=== PATIENT | female | born 1965 | race Caucasian/White ===

== ENCOUNTER 2016-12-30 13:53 | Observation (INO) | payer OTHER ==
[2016-12-30] MEDS ORDERED: SODIUM CHLORIDE 0.9% (FLUSH) 10 ML SYG IV PRN ×2 (14:07→20:14)
[2016-12-30] MEDS ORDERED: ONDANSETRON INJ 4 MG/2 ML VIAL IV ONE ×2 (14:07→16:38)
[2016-12-30] MEDS ORDERED: NITROGLYCERIN 0.4 MG 25 EA TAB SL ONE ×3 (14:07→15:21)
[2016-12-30] MEDS ORDERED: ASPIRIN TABLET 325 MG TAB PO ONE (14:07)
--- NOTE | 2016-12-30 15:08 | RAD ---
Procedure: AP View Chest Exam date: 12/30/2016 2:07 PM CDT Ordering Provider: Didi Perez Clinical Indication: chest pain Comparison: None Findings: Cardiomediastinal silhouette is within normal limits. The lungs are clear. No large pleural effusions or pneumothorax. Osseous structures are nonacute. No evidence of active tuberculosis. Impression: No acute cardiopulmonary process. Electronically signed by: Brenton Bain MD 12/30/2016 3:07 PM CDT
--- NOTE | 2016-12-30 16:32 | ED.PDOC ---
History of Present Illness - General Chief Complaint: Chest Pain/IN Stated Complaint: chest discomfort Time Seen by Provider: 12/30/16 14:05 Source: patient, RN notes reviewed, Vital Signs reviewed Exam Limitations: no limitations - History of Present Illness Initial Comments: Patient is a 51 y/o female who started having chest pain about 2 hours [employer]. The pain is substernal and radiates the the left upper chest and neck. It is pressure that is occasionally sharp. She denies any SOB, nausea or diaphoresis. She has a history of HTN and high cholesterol. Timing/Duration: 1-3 hours Severity: severe Improving Factors: nothing Worsening Factors: nothing Associated Symptoms: chest pain Allergies/Adverse Reactions: Allergies Acetaminophen [From [place]] Allergy (Unverified 05/23/13 00:40) Alprazolam [From Xanax] Allergy (Unverified 05/23/13 00:40) Hydrocodone [From [place]] Allergy (Unverified 05/23/13 00:40) Hydromorphone [From Dilaudid] Allergy (Unverified 05/23/13 00:38) Morphine Allergy (Unverified 05/23/13 00:38) Omeprazole [From Prilosec] Allergy (Unverified 05/23/13 00:40) Tramadol [From Ultram] Allergy (Unverified 05/23/13 00:40) Home Medications: Ambulatory Orders Acetaminophen W/ Codeine [Acetaminophen/Codeine #3 300-30 mg] 1 tab PO TID PRN 12/30/16 Aspirin [Aspirin Adult Low Dose] 81 mg PO DAILY 12/30/16 Bupropion HCl [Bupropion HCl Sr] 150 mg PO DAILY 12/30/16 Clonazepam 0.5 mg PO Q8H PRN 12/30/16 Docusate Sodium [Stool Softener] 100 mg PO BID 12/30/16 Estradiol 2 mg PO DAILY 12/30/16 Gabapentin 300 mg PO DAILY 12/30/16 Gabapentin 600 mg PO BEDTIME 12/30/16 Metoprolol Tartrate 50 mg PO BID 12/30/16 Multiple Vitamins W/ Minerals [Multivitamin Adults 50+] 1 tab PO DAILY 12/30/16 Naproxen [Naprosyn] 500 mg PO BID 12/30/16 Niacin [Niacin ER] 500 mg PO BEDTIME 12/30/16 Pantoprazole Sodium 40 mg PO BID 12/30/16 Simvastatin 40 mg PO BEDTIME 12/30/16 Venlafaxine HCl [Venlafaxine HCl ER] 150 mg PO BID 12/30/16 Vitamin E [E-400] 800 unit PO BEDTIME 12/30/16 Review of Systems - Review of Systems Constitutional: Denies: diaphoresis EENTM: States: no symptoms reported Respiratory: States: no symptoms reported Cardiology: States: chest pain Gastrointestinal/Abdominal: States: no symptoms reported Genitourinary: States: no symptoms reported Musculoskeletal: States: no symptoms reported Skin: States: no symptoms reported Neurological: States: no symptoms reported Endocrine: States: no symptoms reported Hematologic/Lymphatic: States: no symptoms reported All other Systems: Reviewed and Negative Past Medical History (General) - Patient Medical History Hx Hypertension: Yes Hx Gastroesophageal Reflux: Yes - Vaccination History Hx Tetanus, Diphtheria Vaccination: No Hx Influenza Vaccination: No Hx Pneumococcal Vaccination: No - Social History Hx Tobacco Use: No Hx Chewing Tobacco Use: No Hx Alcohol Use: Yes - occasionaly Hx Substance Use: No Hx Substance Use Treatment: No Hx Depression: Yes Hx Physical Abuse: No Hx Emotional Abuse: No Hx Suspected Abuse: No - Female History Patient : No Family Medical History - Family History Mother Living Status: Still Living Hx Family Diabetes: Yes Hx Family;Other: fibrocystic breast disease Physical Exam - Physical Exam General Appearance: Alert, Anxious, Obvious distress Ears, Nose, Throat: hearing grossly normal, normal ENT inspection Respiratory: lungs clear, normal breath sounds, no respiratory distress, no accessory muscle use Cardiovascular/Chest: regular rate, rhythm, no edema, no gallop, no murmur Gastrointestinal/Abdominal: normal bowel sounds, non tender, soft, no organomegaly Extremity: normal range of motion, non-tender, normal inspection, no pedal edema , no calf tenderness Neurologic: alert, normal mood/affect, oriented x 3 Skin Exam: normal color, warm/dry Progress - Progress Progress: 12/30/16 16:33 Patient reported relief of her symptoms after ASA and 3 Nitro. However, pain returned after an hour. Nitropaste 0.5 inch was placed with some relief. An additional 0.5 inch was added which provided complete relief. 12/30/16 18:20 - Results/Orders Results/Orders: 12/30/16 12/30/16 12/30/16 13:57 14:50 15:21 Temperature 98.3 F Pulse Rate [ 113 H 102 H 100 H Apical] Respiratory 20 18 18 Rate Blood Pressure 156/82 136/84 117/76 [Right Arm] O2 Sat by Pulse 100 98 99 Oximetry 12/30/16 12/30/16 17:00 17:49 Temperature Pulse Rate [ 103 H 96 H Apical] Respiratory 20 18 Rate Blood Pressure 114/55 118/63 [Right Arm] O2 Sat by Pulse 98 97 Oximetry 12/30/16 14:07 IV Care:Saline Lock per Protoc QSHIFT Telemetry .ONCE Sodium Chloride 0.9% (Flush) [Saline Flush Syringe] 10 ml IV PRN PRN EKG Stat Pulse Ox Stat 12/30/16 14:08 EKG Assessment ONCE Pulse Oximetry Assessment DAILY Laboratory Results WBC 6.0 K/mm3 (4.8-10.8) 12/30/16 14:25 RBC 4.61 M/mm3 (4.20-5.40) 12/30/16 14:25 Hgb 13.4 gm/dL (12.0-16.0) 12/30/16 14:25 Hct 39.9 % (36.0-47.0) 12/30/16 14:25 MCV 86.6 fl (81.0-99.0) 12/30/16 14:25 MCH 29.1 pg (27.0-31.0) 12/30/16 14:25 MCHC 33.6 g/dL (33.0-37.0) 12/30/16 14:25 RDW 14.1 % (11.5-14.5) 12/30/16 14:25 Plt Count 186 K/mm3 (130-400) 12/30/16 14:25 MPV 8.4 fl (7.40-10.4) 12/30/16 14:25 Absolute Neuts (auto) 3.70 K/uL (1.8-6.8) 12/30/16 14:25 Absolute Lymphs (auto) 1.80 K/uL (1.0-3.4) 12/30/16 14:25 Absolute Monos (auto) 0.50 K/uL (0.2-0.8) 12/30/16 14:25 Absolute Eos (auto) 0.00 K/uL (0.0-0.4) 12/30/16 14:25 Absolute Basos (auto) 0.00 K/uL (0.0-0.1) 12/30/16 14:25 Neutrophils % 61.1 % (42.0-78.0) 12/30/16 14:25 Lymphocytes % 30.6 % (20.0-50.0) 12/30/16 14:25 Monocytes % 8.2 % (2.0-9.0) 12/30/16 14:25 Eosinophils % 0.0 % (1.0-5.0) L 12/30/16 14:25 Basophils % 0.1 % (0.0-2.0) 12/30/16 14:25 PT 11.3 SECONDS (9.4-12.5) 12/30/16 14:25 INR 1.000 12/30/16 14:25 PTT (SP) 32.3 SECONDS (25.1-36.5) 12/30/16 14:25 D-Dimer, Quantitative < 200 ng/mL (0-230) 12/30/16 14:25 Sodium 138 mmol/L (135-145) 12/30/16 14:25 Potassium 4.0 mmol/L (3.6-5.0) 12/30/16 14:25 Chloride 102 mmol/L (101-111) 12/30/16 14:25 Carbon Dioxide 28 mmol/L (21-31) 12/30/16 14:25 Anion Gap 12.0 (12-18) 12/30/16 14:25 BUN 16 mg/dL (7-18) 12/30/16 14:25 Creatinine 0.80 mg/dL (0.6-1.3) 12/30/16 14:25 BUN/Creatinine Ratio 20.0 (10-20) 12/30/16 14:25 Random Glucose 114 mg/dL (70-105) H 12/30/16 14:25 Serum Osmolality 277.7 mOsm/L (275-295) 12/30/16 14:25 Calcium 9.0 mg/dL (8.4-10.2) 12/30/16 14:25 Magnesium 1.8 mg/dL (1.8-2.5) 12/30/16 14:25 Total Bilirubin 0.3 mg/dL (0.2-1.0) 12/30/16 14:25 Direct Bilirubin < 0.1 mg/dL (0-0.2) 12/30/16 14:25 Indirect Bilirubin 0.2 mg/dL (0.2-0.8) 12/30/16 14:25 AST 23 IU/L (10-42) 12/30/16 14:25 ALT 26 IU/L (10-60) 12/30/16 14:25 Alkaline Phosphatase 66 IU/L (42-121) 12/30/16 14:25 Creatine Kinase 49 IU/L (26-140) 12/30/16 17:25 CK-MB (CK-2) 2.0 ng/mL (0.0-4.4) 12/30/16 17:25 CK-MB (CK-2) % Not Reportable 12/30/16 17:25 Troponin I < 0.02 ng/mL (0.01-0.05) 12/30/16 17:25 B-Natriuretic Peptide 53.8 pg/ml (0-100) 12/30/16 14:25 Serum Total Protein 7.3 gm/dL (6.4-8.2) 12/30/16 14:25 Albumin 4.0 g/dl (3.2-5.5) 12/30/16 14:25 - EKG/XRAY/CT EKG: Sinus, Tachy - 117 bpm Comments: NML axis; T-wave inv. III,aVR,V1,V2; No comp. avail.-Abn EKG XRAY: chest Xray Comments: No acute process Departure - Departure Clinical Impression: Tachycardia Chest pain Qualifiers: Chest pain type: unspecified Qualifier Code: (R07.9) Chest pain, unspecified Time of Disposition: 18:56 Disposition: Admit Patient Referrals: TOM WALKER [Primary Care Provider] - 1-2 Weeks Home Medications: Ambulatory Orders Acetaminophen W/ Codeine [Acetaminophen/Codeine #3 300-30 mg] 1 tab PO TID PRN 12/30/16 Aspirin [Aspirin Adult Low Dose] 81 mg PO DAILY 12/30/16 Bupropion HCl [Bupropion HCl Sr] 150 mg PO DAILY 12/30/16 Clonazepam 0.5 mg PO Q8H PRN 12/30/16 Docusate Sodium [Stool Softener] 100 mg PO BID 12/30/16 Estradiol 2 mg PO DAILY 12/30/16 Gabapentin 300 mg PO DAILY 12/30/16 Gabapentin 600 mg PO BEDTIME 12/30/16 Metoprolol Tartrate 50 mg PO BID 12/30/16 Multiple Vitamins W/ Minerals [Multivitamin Adults 50+] 1 tab PO DAILY 12/30/16 Naproxen [Naprosyn] 500 mg PO BID 12/30/16 Niacin [Niacin ER] 500 mg PO BEDTIME 12/30/16 Pantoprazole Sodium 40 mg PO BID 12/30/16 Simvastatin 40 mg PO BEDTIME 12/30/16 Venlafaxine HCl [Venlafaxine HCl ER] 150 mg PO BID 12/30/16 Vitamin E [E-400] 800 unit PO BEDTIME 12/30/16 Decision To Admit - Decistion To Admit Decision to Admit Reason: Medical Nature Decision to Admit Date: 12/30/16 Decision to Admit Time: 18:30
[2016-12-30] MEDS ORDERED: ONDANSETRON INJ 4 MG/2 ML VIAL ONE (16:36)
[2016-12-30] MEDS ORDERED: NITROGLYCERIN 2% 1 GM UD TOP ONE ×2 (16:37)
--- NOTE | 2016-12-30 19:44 | HP ---
SUPERVISING PHYSICIAN: Los Louie MD CHIEF COMPLAINT: Chest pain. HISTORY OF PRESENT ILLNESS: Ms. Cortes is a 51-year-old, female patient that presented to the Emergency Department after onset of chest pain two hours prior to arrival. She noted the pain was substernal and was radiating up the left upper chest and neck and described as sharp, dull ache. She denied any significant shortness of breath. She had some nausea and no diaphoresis. She has a significant history for hypertension and high cholesterol. In the Emergency Department, she was given 3 nitroglycerin and reported the pain was relieved. Initially the pain was described as 7/10 on the pain scale and the patient was pain free upon request for admission from the Emergency Department. Initial cardiac enzymes were completed times two with troponin being less than 0.02. White count within normal limits. Chemistries showed normal electrolytes, normal liver functions. BNP normal at 53.8. Chest x-ray prior to admission from the Emergency Department per radiology interpretation showed no acute cardiopulmonary processes. Initial EKG showed sinus tachycardia at 117 with slight T-wave inversion in V3, V1 and V2. There was no available comparison. Again, the patient was given 3 nitroglycerin which relieved the pain in the Emergency Department. However, after a short period of time, approximately one hour, the pain returned and she was started on nitro paste 0.5 inch with complete relief. The patient is now going to be placed in observation for continuation of workup and evaluation to rule out acute cardiac event. The patient was placed on observation in stable condition. PAST MEDICAL HISTORY: 1. Arthritis. 2. Hypertension. 3. History of tachycardia. 4. Depression and anxiety. 5. Neuropathy. 6. Hyperlipidemia. 7. Hypothyroidism. 8. Chronic back pain. PAST SURGICAL HISTORY: 1. Total hysterectomy. 2. Tonsillectomy. 3. Cholecystectomy. 4. Wrist surgery. HOME MEDICATIONS: 1. Tylenol No. 3, 3 times daily as needed for pain. 2. Vitamin E 800 units at bedtime. 3. Multivitamins with minerals 1 tablet daily. 4. Gabapentin 300 mg at bedtime. 5. Neurontin (gabapentin) 300 mg daily. 6. Naprosyn 500 mg twice daily. 7. Clonazepam 0.5 mg q.8h. p.r.n. for anxiety. 8. Niacin ER 500 mg at bedtime. 9. Stool softener - Docusate sodium 100 mg twice daily. 10. Pantoprazole 40 mg twice daily. 11. Metoprolol tartrate 50 mg twice daily. 12. Aspirin 81 mg daily. 13. Estradiol 2 mg daily. 14. Bupropion HCL 150 mg daily. 15. Venlafaxine 150 mg b.i.d. 16. Simvastatin 40 mg daily. ALLERGIES: ALPRAZOLAM, HYDROCODONE, HYDROMORPHONE, NORCO, MORPHINE, DILAUDID, TRAMADOL. FAMILY HISTORY: Significant for TIA in her father as well as cardiovascular disease, hypertension and diabetes in her mother's side of the family. 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 She lives in [place], [place]. She is currently . She has two children, one living at home. She denies ever smoking and only drinks alcohol on occasion. REVIEW OF SYSTEMS: CONSTITUTIONAL: Denies any fevers, chills, fatigue, or unintentional weight loss. HEENT: Denies nasal congestion, sore throat. RESPIRATORY: Denies shortness of breath, cough, chest congestion. CARDIOVASCULAR: As noted in history of present illness, chest pain. GASTROINTESTINAL: Denies nausea or vomiting. She does have some issues with chronic constipation. GENITOURINARY: Denies dysuria, increased frequency or other urinary symptoms. NEUROLOGIC: Denies syncopal episodes, dizziness, headaches. PHYSICAL EXAMINATION: VITAL SIGNS: Temperature 98.3. Pulse 113. Blood pressure 156/82. Respirations 20. O2 saturation 100% on room air. Admission weight 103.6 kg. GENERAL: The patient is alert, in no obvious acute distress on exam in the Emergency Department. HEENT: Tympanic membranes clear bilaterally. Oropharynx is pink, moist without any lesions. No oral lesions. NECK: No jugular venous distention noted. CHEST: Lungs clear to auscultation bilaterally without any notable rhonchi, wheezes, or rales. CARDIOVASCULAR: Regular rate and rhythm without any appreciable murmurs, gallops, or rubs. ABDOMEN: Obese, but soft, nontender. Positive bowel sounds. EXTREMITIES: There is no cyanosis, clubbing or edema. NEUROLOGIC: The patient is alert and oriented times three. LABORATORY: CBC within normal limits. Differential within normal limits. Coagulation studies show normal PT, PT-T. D-dimer less than 200. Chemistries show normal electrolytes, liver functions. Glucose 114. Initial cardiac enzymes showed less than 0.02. Repeat in 3 hours showed troponin less than 0.02 with CPK within normal limits. BNP 53. Urinalysis pending. RADIOLOGY: Chest x-ray shows no acute cardiopulmonary processes. 12 lead EKG initially shows sinus tachycardia at 117 with some T-wave inversion noted in III , V1 and V2. No comparison available. ASSESSMENT: 1. Chest pains, unknown etiology. Initial set of cardiac enzymes show no acute changes. 2. Tachycardia with history of tachycardia on beta blockers including metoprolol, possibly needing adjustment in levels to assist with better control of ventricular rate. 3. Hypertension. 4. History of depression and anxiety. 5. Gastroesophageal reflux disease. 6. Chronic pain syndrome, lower back. 7. Hypothyroidism, currently on replacement. PLAN: The patient will be placed in observation to rule out an acute cardiac event. She did have initial enzyme times two that showed negative troponin. We will plan to repeat this in 6 hours as well as an EKG. The patient was started on nitro paste and will be transitioned to a 0.4 mg nitroglycerin patch for better control. The patient could possibly benefit from a mcfp nitro, but will await consultation with cardiology. We will try to establish a cardiac followup possibly tomorrow with Dr. Hoang prior to discharge to further assist with the patient's treatment plan. Should the patient show any acute changes on telemetry or elevation of enzymes or EKG changes, certainly we will contact cardiology and discuss possible transfer for further acute treatment and evaluation. We will plan to restart all of the patient's home medications once verified and updated in the electronic medical record and start her on DVT prophylaxis per protocol. Anticipate length of stay of 1 to 2 days. Possible discharge tomorrow with close clinical followup needed at time of discharge. Once the patient is discharged, she will followup with Dr. Culp, her primary care provider, and further cardiac followup if unable to secure a cardiovascular consultation in the morning with Dr. Hoang. Until discharge, we will continue to monitor the patient closely and treat appropriately. Dr. Louie is the collaborating physician and available for consultation. #[id number] [facility]
[2016-12-30] MEDS ORDERED: NITROGLYCERIN 0.4 MG 25 EA TAB SL PRN (20:14)
[2016-12-30] MEDS ORDERED: MORPHINE SULFATE INJ 10 MG/ML VIAL IV PRN (20:14)
[2016-12-30] MEDS ORDERED: ACETAMINOPHEN 325 MG TAB PO PRN (20:14)
[2016-12-30] MEDS ORDERED: ACETAMINOPHEN W/COD #3 TAB (ER Disp) PO PRN (20:18)
[2016-12-30] MEDS ORDERED: IV SET AND CAP CHANGE INJ INJ SCH (20:30)
[2016-12-30] MEDS ORDERED: NITROGLYCERIN 0.4 MG/HR PATCH TOP SCH (20:30)
[2016-12-30] MEDS ORDERED: VENLAFAXINE XR 75 MG CAP ONE ×2 (20:55→21:50)
[2016-12-30] MEDS ORDERED: NIACIN ER 500 MG TAB ONE (20:56)
[2016-12-30] MEDS ORDERED: ESTRADIOL TAB 1 MG PO ONE (20:56)
[2016-12-30] MEDS ORDERED: SIMVASTATIN 20 MG TAB ONE (20:57)
[2016-12-30] MEDS ORDERED: ACETAMINOPHEN W/COD #3 TAB 1 EA TAB ONE (20:58)
[2016-12-30] MEDS ORDERED: METOPROLOL TARTRATE 50 MG TAB PO SCH (21:00)
[2016-12-30] MEDS ORDERED: NIACIN 500 MG PO SCH (21:00)
[2016-12-30] MEDS ORDERED: NON-FORMULARY MEDICATION 1 EA MIS (Simvastatin [Simvastatin] 40 MG) PO SCH (21:00)
[2016-12-30] MEDS ORDERED: GABAPENTIN 300 MG CAP PO SCH (21:00)
[2016-12-30] MEDS ORDERED: NON-FORMULARY MEDICATION 1 EA MIS (Venlafaxine Hcl [Venlafaxine Hcl Er] 150 MG) PO SCH (21:00)
[2016-12-30] MEDS ORDERED: VITAMIN E 800 UNIT PO SCH (21:00)
[2016-12-30] MEDS ORDERED: PANTOPRAZOLE SODIUM TAB 40 MG PO SCH (21:00)
[2016-12-30] MEDS: SODIUM CHLORIDE 0.9% (FLUSH) 10 ML SYG IV SCH (21:09)
[2016-12-30] MEDS: DOCUSATE SODIUM 100 MG CAP PO SCH (21:12)
[2016-12-30] MEDS: NAPROXEN 500 MG TAB PO SCH (21:12)
[2016-12-30] MEDS ORDERED: VENLAFAXINE XR 75 MG CAP PO ONE (21:56)
--- NOTE | 2016-12-31 00:27 | PCM.CORE ---
Physician DVT/VTE - Nurse DVT Assessment & Total Each Risk Factor Represents 1 Point: Age 41-60 Each Risk Factor is 1 Point: Obesity (BMI >25), Serious Lung disease (pnemonia < 1month, COPD, emphysema,etc) DVT Assessment Score: 3 - 3-4 High Risk Treatments: Early Ambulation *, Sequential Compression Device Pharmacological: Enoxaparin 40 mg SQ Daily
[2016-12-31] MEDS ORDERED: ESTRADIOL TAB 1 MG PO ONE (07:27)
[2016-12-31] MEDS ORDERED: NITROGLYCERIN 0.4 MG/HR PATCH TOP ONE (07:28)
[2016-12-31] MEDS ORDERED: ACETAMINOPHEN W/COD #3 TAB 1 EA TAB PO PRN (08:19)
[2016-12-31] MEDS ORDERED: SODIUM CHLORIDE 0.9% 10 ML VIAL IV PRN (08:23)
[2016-12-31] MEDS ORDERED: REMOVE OLD PATCH TOP SCH (09:00)
[2016-12-31] MEDS ORDERED: ESTRADIOL TAB 1 MG PO SCH ×2 (09:00→21:00)
[2016-12-31] MEDS ORDERED: METOPROLOL TARTRATE 50 MG TAB PO SCH (09:00)
[2016-12-31] MEDS ORDERED: ESTRADIOL 2 MG PO SCH (09:00)
[2016-12-31] MEDS ORDERED: ENOXAPARIN SODIUM 40 MG/0.4 ML SYG SUBCU SCH (09:00)
[2016-12-31] MEDS ORDERED: ASPIRIN TABLET 325 MG TAB PO SCH (09:00)
[2016-12-31] MEDS ORDERED: GABAPENTIN 300 MG CAP PO SCH (09:00)
[2016-12-31] MEDS ORDERED: ASPIRIN EC 81 MG TAB PO SCH ×2 (09:00→21:00)
[2016-12-31] MEDS: NAPROXEN 500 MG TAB PO SCH (09:06)
[2016-12-31] MEDS: DOCUSATE SODIUM 100 MG CAP PO SCH (09:07)
[2016-12-31] MEDS: SODIUM CHLORIDE 0.9% (FLUSH) 10 ML SYG IV SCH (09:07)
[2016-12-31 09:56] VITALS: BP 125/79; TEMP 98.5; O2SAT 96
[2016-12-31] MEDS ORDERED: LIDOCAINE VIS-MYLANTA 30 ML UD PO ONE (10:17)
[2016-12-31] MEDS ORDERED: PANTOPRAZOLE SODIUM TAB 40 MG PO SCH (16:30)
[2016-12-31] MEDS ORDERED: VITAMIN E 1,000 IU CAP PO SCH (21:00)
[2016-12-31] MEDS ORDERED: NITROGLYCERIN 0.4 MG/HR PATCH TOP SCH (21:00)
[2016-12-31] MEDS ORDERED: SIMVASTATIN 20 MG TAB PO SCH (21:00)
[2016-12-31] MEDS ORDERED: NIACIN ER 500 MG TAB PO SCH (21:00)
[2016-12-31] MEDS ORDERED: VENLAFAXINE XR 75 MG CAP PO SCH (21:00)
--- NOTE | 2017-01-01 09:43 | DS ---
SUPERVISING PHYSICIAN: Los Louie MD DISCHARGE DIAGNOSIS: 1. Chest pains, unknown etiology with three sets of cardiac enzymes showing troponin less than 0.02 and nonspecific T-wave changes on EKG with no acute changes from admission. 2. Tachycardia with history of tachycardia on beta blockers including metoprolol, stable during admission. 3. Hypertension, stable 4. Gastroesophageal reflux disease with a negative Helicobacter pylori, possibly contributing to some of her epigastric discomfort. 5. Chronic pain syndrome, lower back. 6. Hypothyroidism, currently on replacement therapy. 7. History of depression and anxiety. 8. Hyperlipidemia, currently on therapy with simvastatin. HISTORY OF PRESENT ILLNESS: Ms. Cortes is a 51-year-old, female patient that presented to the Emergency Department after sudden onset of chest pain two hours prior to arrival. She noted the chest pain was more substernal, epigastric and was radiating up into the chest wall, head and neck, sometimes with the pain being described as sharp, intermittent, dull and achy. She denied any significant shortness of breath. She had some mild nausea, but not ever any diaphoresis. She has a significant history for hypertension and high cholesterol, but is on current therapy. In the Emergency Department, she was given 3 nitroglycerin and reported the pain was relieved. Initially the pain was described as 7/10 on the pain scale and the patient was pain free and then once again, approximately an hour, the pain returned and she was started on nitro paste with complete relief of her pain. Initial laboratory studies in the Emergency Department showed cardiac enzymes were completed times two with troponin being less than 0.02. White count within normal limits. Chemistries showed normal electrolytes, normal liver functions. BNP normal. Chest x-ray prior to admission from the Emergency Department per radiology interpretation showed no acute cardiopulmonary processes. Initial EKG showed sinus tachycardia at 117 with nonspecific T-wave inversion in V3, V1 and V2. There was no available comparison. The patient was placed on observation for further evaluation and to further rule out any acute cardiac events. The patient was placed in observation in stable condition. LABORATORY: CBC on admission was within normal limits with no significant changes through admission. Coagulation studies show normal PT, PT-T. D-dimer. Chemistries show normal electrolytes on admission with potassium 3.4 and at discharge potassium was 3.4, BUN 1, creatinine 0.6, glucose 136. Liver functions all within normal limits. Three sets of troponins were less than 0.02. Lipid profile showed a normal cholesterol with elevated triglycerides of 184. LDL cholesterol 95, HDL 34. H. pylori IGG antibody was negative. RADIOLOGY: Chest x-ray per radiology interpretation showed no evidence of pleural effusions, pneumothorax or acute cardiopulmonary processes. 2 lead EKG initially showed tachycardic rhythm at 117 with normal axis and some poor R- wave progression with some nonspecific T-wave inversion noted in III, V1 and V2. No comparison EKG available. Repeat EKG prior to discharge showed no significant changes from admission. HOSPITAL COURSE: Ms. Cortes is a 51-year-old female who was placed in observation from the Emergency Department as noted in history of present illness. In the Emergency Room, she was given aspirin and nitro with relief of her chest pain. She was admitted with nitro paste in place. Nitro paste was exchanged for nitro patch. The patient reported no chest pains through the night to the nursing staff. There were no significant changes noted on telemetry. On the morning of discharge, she was seen in consultation with cardiology by Dr. Hoang who after visiting with the patient noted the patient became quite anxious and was very upset after it was discussed that Dr. Hoang felt that her pain was not related to her heart and the patient left the exam room. I spoke with Dr. Hoang who noted the patient was quite anxious and upset again after being examined and discussed the findings of her EKGs and laboratory studies and the nature of the chest pains less likely indicated cardiac origin. However, it was noted with the patient that she needed further workup in the outpatient setting probably to include a stress test. The patient remained anxious and after discussion of findings with the patient, she became quite upset and irritable saying that she did not understand where her pain was coming from and it was explained to her that her initial studies indicated no acute findings, however, this did not rule out the origin of her pain being from her heart. It was explained in depth that there were other etiologies possible and to take into consideration and she would need to follow closely with her primary care physician, Dr. Culp, for further evaluation and possible referral to cardiology for continuation of workup and additional consideration for possible pain related to gastric origin such as exacerbation of her gastroesophageal reflux disease. She was given a GI slider and noted the pain resolved at that time, but refused to take Carafate as prescribed in the hospital. The patient was stable. Vital signs remained stable through admission. At time of discharge, blood pressure was 125/79, respirations 18, O2 saturation 96%, afebrile. There were no noted changes on property assessment monitor. The patient noted she still had some epigastric discomfort and, again, was upset that we were not able to fully elicit an origin of her discomfort. Exam on date of discharge showed the patient had clear lungs with no wheezing or rhonchi. Heart was regular rate and rhythm without any appreciable murmurs, gallops, or rubs. There was just very mild discomfort over the epigastric region, but no pain to the abdomen as far rebound tenderness. Bowel sounds were present. She was neurologically alert and oriented times three. The patient was in no acute distress although she was emotional at times. After explaining to the patient she would need to continue with followup in the outpatient setting, the patient was discharged and at time of discharge, she was in stable condition. PLAN: The patient is discharged to have close clinical followup with Dr. Culp as scheduled, which had been arranged to occur on 01/08/17 at 1530, which is Friday, however, the patient refused and noted she would not go to this appointment because she only wanted appointments on Fridays. She was given instructions to have close clinical followup with education in regards to the unknown of her chest discomfort and offered prescriptions for Carafate and encouraged to take her Protonix as previous to admission and to avoid spicy foods as well as to avoid any NSAIDs other than baby aspirin as prescribed. She was to take all other medications as prescribed prior to admission as previous. She was discharged in stable condition. She was instructed that should she have any worsening or any return of her symptoms, she was to call 911 or return to the hospital. She was given prescriptions for: 1. Nitroglycerin 0.4 mg 1 tablet q. 5 minutes as needed for pain and to call 911 with initiation of second dose. 2. Carafate 1 tablet q.i.d. orally, #40. All other medications were continued as previous to admission. It should be noted the patient voiced that she would not get her medications filled because she did not feel this was what wrong with her. Again, it was reinforced to the patient that she needed nitro and that the Carafate would be of great benefit to her possibly until she could be seen in followup. The patient was discharged in stable condition and encouraged to seek medical attention should she have return of her symptoms. [facility][id number] [facility]ITAL[facility]baldo
== END 2016-12-31 13:35 | disposition home or self-care (01) ==
LOC: ER 13:53 → MS 19:43
PROVIDERS: ADMIT Nurse Practitioner Family; ATTEND Nurse Practitioner Family
DX: R07.2 Precordial pain (principal); R00.0 Tachycardia, unspecified; I10 Essential (primary) hypertension; K21.9 Gastro-esophageal reflux disease without esophagitis; G89.4 Chronic pain syndrome; M54.5 Low back pain; E03.9 Hypothyroidism, unspecified; F32.9 Major depressive disorder, single episode, unspecified; F41.9 Anxiety disorder, unspecified; E78.5 Hyperlipidemia, unspecified; R10.13 Epigastric pain; M19.90 Unspecified osteoarthritis, unspecified site; G62.9 Polyneuropathy, unspecified; Z79.82 Long term (current) use of aspirin; Z79.899 Other long term (current) drug therapy; Z88.6 Allergy status to analgesic agent; Z88.8 Allergy status to other drugs, medicaments and biological substances; Z90.49 Acquired absence of other specified parts of digestive tract; Z90.710 Acquired absence of both cervix and uterus; Z82.3 Family history of stroke; Z82.49 Family history of ischemic heart disease and other diseases of the circulatory system; Z83.3 Family history of diabetes mellitus
CPT/HCPCS: 36415 ×5; 71010; 80048; 80053; 80061; 80076; 82550 ×3; 82553 ×3; 83880; 84484 ×3; 85025 ×2; 85379; 85610; 85730; 86317; 93005; 94760; 96372; 96374; 96376; 99284; G0378; J1650; J2405 ×2